=== PATIENT | female | born 2005 | race Caucasian/White ===

== ENCOUNTER 2023-09-16 08:33 | Inpatient (IN) ==
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
[2023-09-16 09:53] LABS: Basophils # (auto) 0.07 K/uL (0.00-0.20); Eosinophils # (auto) 0.47 K/uL (0.00-0.50); Hematocrit (blood only) 38.9 % (37.0-47.0); Hemoglobin 13.8 g/dl (12.0-16.0); Immature Granulocytes # (auto) 0.03 K/uL (0.01-0.20); Immature Granulocytes % (auto) 0.4 %; Lymphocytes # (auto) 1.92 K/uL (1.20-3.40); Lymphocytes % (auto) 28.7 %; Mean Corpuscular Hemoglobin 32.2 pg (25.0-34.0); Mean Corpuscular Hgb Conc 35.5 g/dL (32.0-36.0); Mean Corpuscular Volume 90.7 fL (80.0-100.0); Mean Platelet Volume 10.7 fL (9.4-12.4); Neutrophils % (auto) 53.9 %; Platelet Count 300 K/uL (130-400); RDW Coefficient of Variation 11.8 % (11.5-14.5); RDW Standard Deviation 38.5 fL (36.4-46.3); Red Blood Count 4.29 M/uL (4.20-5.40); White Blood Count 6.69 K/ul (4.8-10.8)
[2023-09-16 10:03] LABS: Albumin Globulin Ratio 1.5 (0.9-2); Albumin Level 4.1 gm/dl (3.4-5.0); BUN Creatinine Ratio 13.6 (10-20); Bilirubin,Total 0.7 mg/dl (0.2-1.0); Calcium 9.6 mg/dl (8.6-10.3); Creatinine Clr Calc Pharmacy 133.3 ml/min; Est GFR (African American) 148.4 ml/min; Est GFR (Non-African American) 128.1 ml/min; Globulin 2.8 gm/dl (2.5-4.0); Potassium 4.7 mmol/L (3.5-5.1); Total Protein 6.9 gm/dl (6.0-8.3)
[2023-09-16 10:13] LABS: Acetaminophen < 3 ug/ml (10-30); Salicylate < 3.0 mg/dl (3.0-30)
[2023-09-16 10:18] LABS: Thyroid Stimulating Hormone 1.987 uIu/ml (0.300-4.500)
[2023-09-16 11:30] LABS: Appearance Urine Clear (Clear); Bilirubin Urine Negative (Negative); Blood Urine Negative (Negative); Color Urine Yellow; Glucose Urine UA Negative (Negative); Ketones Urine Negative (Negative); Leukocyte Esterase Urine Negative (Negative); Nitrite Urine Negative (Negative); Protein Urine Negative (Negative); Specific Gravity Urine 1.013 (1.000-1.030); Urobilinogen Urine Negative (Negative)
[2023-09-16 12:38] LABS: Amphetamines+Metham, Urine Neg (Neg); Barbiturates, Urine Neg (Neg); Benzodiazepine, Urine Neg (Neg); Cocaine, Urine Neg (Neg); MDMA (Ecstacy), Urine Neg (Neg); Marijuana, Urine Neg (Neg); Methadone, Urine Neg (Neg); Opiate, Urine Neg (Neg); Phencyclidine, Urine Neg (Neg)
[2023-09-16 17:21] VITALS: O2SAT 99
[2023-09-16] MEDS ORDERED: ALUMINUM/MAGNESIUM SUSP 30 ML UDC PO PRN (19:04)
[2023-09-16] MEDS ORDERED: MAGNESIUM HYDROXIDE SUSP 30 ML UDC PO PRN (19:04)
[2023-09-16] MEDS ORDERED: SODIUM CHLORIDE 0.65% NA SOLN 45 ML (OCEAN) PRN (19:04)
[2023-09-16] MEDS ORDERED: ACETAMINOPHEN 325 MG TAB PO PRN (19:04)
[2023-09-16] MEDS ORDERED: hydrOXYzine HCl 25 MG TAB PO PRN (19:04)
[2023-09-16] MEDS ORDERED: BISMUTH SUBSALICYLATE LIQD 236 ML PO PRN (19:04)
[2023-09-16] MEDS ORDERED: ARIPiprazole 5 MG TAB PO SCH (19:15)
[2023-09-16] MEDS: FLUoxetine HCL 20 MG CAP PO SCH (21:00)
[2023-09-16] MEDS: HAILEY FE PO SCH (21:03)
[2023-09-16] MEDS: ARIPIprazole 1 MG/ML ORAL SOLN 150 ML BTL PO SCH (21:06)
[2023-09-16] MEDS: LORATADINE 10 MG TAB PO SCH (21:10)
[2023-09-17] MEDS: ARIPIprazole 1 MG/ML ORAL SOLN 150 ML BTL PO SCH (09:23)
[2023-09-17] MEDS: FLUoxetine HCL 20 MG CAP PO SCH (09:23)
[2023-09-17] MEDS: HAILEY FE PO SCH (09:24)
[2023-09-17] MEDS: FEXOFENADINE HCL 180 MG TAB PO SCH (09:24)
--- NOTE | 2023-09-17 09:31 | History & Physical ---
Date of Service September 17, 2023 Impression / Recommendations Impression 17 y/o F with history recurrent major depression and recently increasing suicidal preoccupation who has had limited response to fluoxetine 60 mg. Aripiprazole has recently been added and titrated to 4 mg dose. It seems likely she may meet criteria for cPTSD. She presents as hypermature for her age and gives a clear history of parentification. Likely to underreport symptoms and relying or depending on others. Overall I spent a total of 87 minutes on the floor for this admission including review of chart records, review of test results, direct evaluation of the patient [id number], counseling the patient, reconciling and ordering medication, medication education with the patient, risk assessment, discussion during interdisciplinary treatment rounds, and documentation in the electronic health record. (1) Major depressive disorder, recurrent, severe without psychotic features: Plan The patient was admitted to the [facility] ([facility]) on q15 minute checks (behavioral with suicide precautions) for safety.The patient will participate in group, recreational, and milieu therapies and will be offered additional individual and family sessions as clinically appropriate. * continue fluoxetine 60 mg, consider increase to 80 mg vs change to escitalopram * increase aripiprazole to 5 mg, anticipate likely further titration * In addition to the screening labs ordered in the ED, will order vitamin B12 level, folic acid level, 25-OH vitamin D level, ESR to rule out conditions more pertinent to psychiatric symptoms. Inventory Assets Strengths: supportive relationships, has local supports, voluntary, good insight, intelligent, attending classes Needs: safety and stabilization, medication adjustment, additional coping skills Suicide Risk Level Suicide Risk Level: Moderate (q15 min suicide checks) (denies current thoughts but recently was researching best methods of completing suicide) Risk Factors Assessment Male: No : Yes Do You Have Access To A Gun?: No Health Problems: No Mental Health Diagnoses: Yes Substance Use Disorders: No Previous Attempt: No Previous Psychiatric Hospitalization: Yes Hopelessness: No Protective Factors Assessment : No Responsible for Young Children: No Stable Relationships: Yes Supportive Family: No Good Rapport with Provider: Yes Psychiatric History Identifying Data LAVON DIOR is a 17-year-old F who currently lives in [place] with 4 teammates, has a history of recurrent major depression, and was admitted on 09/16/23 18:12 on a 201 voluntary commitment for suicidal thoughts. Chief Complaint "I got to where I couldn't handle it all right now". History of Present Illness As part of a thorough review of the available medical records, I have read and confirmed the following note by the ED physician: "Patient is a 17-year-old female who presents to the ER for suicidal ideations with a plan to overdose. 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 She also got into a fight with her sister and was having trouble while babysitting. She has a history of depression and anxiety. She has been taking her medications but notes that Saturday night she was researching which meds to take to kill herself. She still has thoughts of wanting to kill her self and consequently notified [employer] who confirms this at bedside. Patient denies all other complaints." the following notes by the ED psychiatric complex case manager: "Met with pt to complete mental health assessment. She self-harms by cutting, with the last time being approximately 2 weeks ago. Pt started cutting when she was 16 as a way of coping with her emotions. Pt has outpatient providers whom she meets with regularly. She gets her medications prescribed via telehealth from her provider back in [place]. She meets with Jayne Lopez at [facility] once a week for counseling. Pt reports past traumas of her father being alcoholic and describing multiple times how he would kill himself, having to drive her mother to the ER after she attempted to kill herself and the pt found her when she was 14 years old, and her mom having breast cancer and anorexia. She has not been eating or sleeping well and feels both are related to how she has been feeling with her mental health. She doesn't have the motivation to get up and make herself something to eat and she hasn't been feeling hungry. Pt report difficulty falling and staying asleep at night, then is overly tired during the day time. She describes her current academic standing as "on a slow decline". She has been missing some classes due to lacking the motivation to get up. 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 She also enjoys reading, crafts, and hanging out with friends. She does feel that she has been participating in these activities less but does not feel she is isolating herself at this time. Pt denies any drug or alcohol use. Pt is willing to sign herself in for treatment." "Sanchez from [facility]'s Mental Health Case Management was present with pt in the ED from arrival. She has since left the ED and asked that we call her with updates when we get placement. Pt agreeable to staff contacting Sanchez ([phone]) and keeping her updated. Will have pt sign KATHRYN." "Met with pt with Dr. Caldera. Pt states that she was having thoughts to kill herself last night and had begun looking at her medications to see which ones would kill her. Pt states these thoughts come and go but recently have gotten worse. She states there were no events or triggers to increase these thoughts, but then goes on to list different things that happened over the break. Her dad spent some time in the hospital for stroke symptoms and the pt reports being the one to care for him as there is nobody else to do it. She also stated her cousin got diagnosed with Leukemia. She also got into a big fight with her sister. Pt has never attempted suicide in the past but has been inpatient once before in [place]. Pt states she did not stay for treatment at this facility as it felt was unsafe in relation to the staff to patient ratio. She stated the facility did not have space for her when she got there and that there were very minimal staff with a large number of patients. Pt denies HI/Hallucinations. She is prescribed Prozac and Abilify by a psychiatrist back home in [place]. Pt reports she is compliant with her medications. She is seeking inpatient treatment at this time. " and the following note by the psychiatric liaison nurse: "Patient presented to ED with SI, with plan to OD. She denies any past SA. She was inpatient in December at [facility] in [place]. She states it was not a g ood experience and signed herself out. She does have a history of SIB by cutting, last episode was 2 weeks ago. 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 She identifies her stressors as family, school, and pressures with fencing. She reports that she and her father are not close. Over break she and her sister got in a fight, and was with her father who was having health concerns. Her parents are states her mother is supportive however "overbearing." She states due to her current mental health state, her grades are declining. She does have outpatient providers, Jayne Lopez for therapy, next appointment 09/18/23 whom she sees weekly, [facility] Pelaez in [place] for psychiatry her Prozac was recently increased to 60mg. She denies any D&A use. Today she began to see [facility] ([phone])." Review of the medical record reveals no previous or outside psychiatric records. Pt. carries diagnosis of Recurrent Major Depression and "cPTSD" has been raised as a possibility. Review of pertinent labs reveals they are noncontributory. A urine toxicology screen was negative for all tested substrates. BAL was <10 mg/dL. screen was negative. Pt presents as pleasant, cooperative, but somewhat detached. Describes a very challenging family with an alcoholic and intermittently violent father who has threatened suicide often and a mother who has attempted suicide multiple times including once when pt found her on the floor post-overdose. Despite categorizing her father as "a piece of shit", she recently spent long hours in the hospital with him "because nobody else would". Depression symptoms have worsened over the past several weeks with a specific stressor being an argument she had with a sister over Thanksgiving. She has become somewhat preoccupied with ways she might kill herself and reading about this online. She elected to tell a sports trainer about this and came to the ED. Has been on fluoxetine for over a year and fairly recently started aripiprazole at 2 mg with more-recent increase to 4 mg. She attributes no side effect to either, but reports scant benefit either. Past Psychiatric History Current Psychiatric Diagnosis: MDD Outpatient Services: Jayne Lopez psychotherapy, Kenya Pelaez (MEDICAL ARTIST) in [place] for medicaiton management Previous Psych Admissions: none Do You Have Access To A Gun?: No History of Previous Suicide Attempt: No Allergies Allergy/AdvReac Type Severity Reaction Status Date / Time amoxicillin Allergy Anaphylaxis Verified 09/16/23 11:53 Penicillins Allergy Anaphylaxis Verified 09/16/23 11:53 Home Medications Medication Instructions Recorded Confirmed Type Claritin 10 mg PO HS 09/16/23 09/16/23 History aripiprazole 2 mg tablet (Abilify) 4 mg PO DAILY 09/16/23 09/16/23 History fexofenadine 180 mg PO DAILY 09/16/23 09/16/23 History fluoxetine 60 mg tablet 60 mg PO DAILY 09/16/23 09/16/23 History Family History Family History of: Depression and Suicide Attempts Alcohol History Hx of Alcohol Use Over the Past 12 Months: No AUDIT Total Score: 0 Smoking Use Have You Smoked or Used Tobacco Products in the Last 30 Days: No Smoking Status: Never smoker Substance History Hx of Prescription Med Misuse Over the Past 12 Months: No Hx of Over the Counter Med Misuse Over the Past 12 Months: No Hx of Inhalent Misuse Over the Past 12 Months: No Hx of Organic Substance Use Over the Past 12 Months: No Hx of Illegal Substances/Street Drug Use Over Past 12 Months: No Problems as a Result of Past Substance Use: None Identified Personal History Beliefs That Will Affect Care: None Patient History Medical History (Updated 09/17/23 @ 13:20 by Austyn Saenz MD) Major depressive disorder, recurrent, severe without psychotic features Social History Smoking Status: Never smoker Preferred Language: Divehi Communication Ability: Effective Communications Executive Required: No Beliefs That Will Affect Care: None Feels Safe at Home: Yes Gender Identity: Female Assistive Devices: Glasses Review of Systems Psychiatric: + depression, + hopelessness, + anhedoni a, + abnormal sleep pattern, + change in appetite, + suicidal ideation, + anxiety and + difficulty concentrating; no paranoia, no hallucinations and no substance abuse Physical Exam Psychiatric: Orientation: alert, oriented to person, oriented to place, oriented to time and cooperative Apperance: appropriately dressed, appropriately groomed and appeared stated age Eye Contact: good eye contact Motor Behavior: no abnormal motor movements Speech: normal rate/rhythm/volume of speech Affect: + constricted affect Mood: + depressed mood and + anxious mood Thought Process: linear/logical thought process Thought Content: reality based without delusions Suicidal Thoughts: denies suicidal plan and denies suicidal intent; + reports suicidal thoughts Homicidal Thoughts: denies homicidal thoughts Hallucinations: no auditory hallucinations and no visual hallucinations Cognition: recent memory grossly intact, remote memory grossly intact, attention grossly intact and language grossly intact Estimated Intelligence: + above average estimated intelligence Insight: + fair insight Judgment: + fair judgement Vital Signs (Past 24 Hours): Last Vital Signs Temp 36.6 C 11/28/23 06:40 Pulse 92 H 09/17/23 06:41 Resp 16 09/17/23 06:40 BP 101/71 09/17/23 06:41 Pulse Ox 99 09/16/23 17:20 O2 Del Method Room Air 09/16/23 18:30 Exam Statement: A physical exam was performed in the ED for the purposes of medical clearance. I accept that physical as correct and adequate for the purposes of the inpatient physical exam. Results & Data ([facility]) Laboratory Results Laboratory Results - last 24 hr 09/16/23 09/16/23 09/16/23 09:26 10:03 11:15 WBC 6.69 RBC 4.29 Hgb 13.8 Hct 38.9 MCV 90.7 MCH 32.2 MCHC 35.5 RDW Std Deviation 38.5 RDW Coeff of Rachel 11.8 Plt Count 300 MPV 10.7 Immature Gran % (Auto) 0.4 Neut % (Auto) 53.9 Lymph % (Auto) 28.7 [place] % (Auto) 9.0 Eos % (Auto) 7.0 Baso % (Auto) 1.0 Neut # (Auto) 3.60 Lymph # (Auto) 1.92 [place] # (Auto) 0.60 H Eos # (Auto) 0.47 Baso # (Auto) 0.07 Immature Gran # (Auto) 0.03 Sodium 139 Potassium 4.7 Chloride 107 Carbon Dioxide 27 Anion Gap 5 BUN 9 Creatinine 0.66 Est Cr Clr Drug Dosing 133.3 Est GFR ( Amer) 148.4 Est GFR (Non-Af Amer) 128.1 BUN/Creatinine Ratio 13.6 Glucose 89 Calcium 9.6 Total Bilirubin 0.7 AST 19 ALT 14 Alkaline Phosphatase 70 Total Protein 6.9 Albumin 4.1 Globulin 2.8 Albumin/Globulin Ratio 1.5 TSH 1.987 Urine Color Yellow Urine Appearance Clear Urine pH 6.0 Ur Specific [place] 1.013 Urine Protein Negative Urine Glucose (UA) Negative Urine Ketones Negative Urine Blood Negative Urine Nitrite Negative Urine Bilirubin Negative Urine Urobilinogen Negative Ur Leukocyte Esterase Negative POC Ur Test Salicylates < 3.0 L Urine Opiates Screen Neg Ur Methadone, Qual Neg Acetaminophen < 3 L Urine Barbiturates Neg Ur Phencyclidine (PCP) Neg U Amphetamin/Meth Scrn Neg MDMA (Ecstasy) Screen Neg U Benzodiazepines Scrn Neg Ur Cocaine Metabolite Neg U Marijuana (THC) Screen Neg Ethyl Alcohol mg/dL < 10.0 SARS-CoV-2, RNA, NAAT NEGATIVE 09/16/23 17:44 WBC RBC Hgb Hct MCV MCH MCHC RDW Std Deviation RDW Coeff of Rachel Plt Count MPV Immature Gran % (Auto) Neut % (Auto) Lymph % (Auto) [place] % (Auto) Eos % (Auto) Baso % (Auto) Neut # (Auto) Lymph # (Auto) [place] # (Auto) Eos # (Auto) Baso # (Auto) Immature Gran # (Auto) Sodium Potassium Chloride Carbon Dioxide Anion Gap BUN Creatinine Est Cr Clr Drug Dosing Est GFR ( Amer) Est GFR (Non-Af Amer) BUN/Creatinine Ratio Glucose Calcium Total Bilirubin AST ALT Alkaline Phosphatase Total Protein Albumin Globulin Albumin/Globulin Ratio TSH Urine Color Urine Appearance Urine pH Ur Specific [place] Urine Protein Urine Glucose (UA) Urine Ketones Urine Blood Urine Nitrite Urine Bilirubin Urine Urobilinogen Ur Leukocyte Esterase POC Ur Test NEG Salicylates Urine Opiates Screen Ur Methadone, Qual Acetaminophen Urine Barbiturates Ur Phencyclidine (PCP) U Amphetamin/Meth Scrn MDMA (Ecstasy) Screen U Benzodiazepines Scrn Ur Cocaine Metabolite U Marijuana (THC) Screen Ethyl Alcohol mg/dL SARS-CoV-2, RNA, NAAT Current Inpatient Medications Current Inpatient Medications: Current Inpatient Medications Acetaminophen (Acetaminophen 325 Mg Tab) 650 mg PO Q4H PRN PRN Reason: Headache or Minor Fever Stop: 10/16/23 19:03 Al Hydrox/Mg Hydrox/Simethicone (Aluminum/Magnesium Susp 30 Ml Udc) 30 ml PO Q4 H PRN PRN Reason: GI Upset Stop: 10/16/23 19:03 Aripiprazole (Aripiprazole 1 Mg/Ml Oral Soln 150 Ml Btl) 4 mg PO QAM WIL Stop: 10/16/23 20:59 Last Admin: 09/17/23 09:23 Dose: 4 mg Bismuth Subsalicylate (Bismuth Subsalicylate Liqd 236 Ml) 15 ml PO PRN PRN PRN Reason: Loose Stool Stop: 10/16/23 19:03 Fexofenadine HCl (Fexofenadine Hcl 180 Mg Tab) 180 mg PO QAM WIL Stop: 10/17/23 08:59 Last Admin: 09/17/23 09:24 Dose: 180 mg Fluoxetine HCl (Fluoxetine Hcl 20 Mg Cap) 60 mg PO QAM WIL Stop: 10/16/23 19:14 Last Admin: 09/17/23 09:23 Dose: 60 mg Hydroxyzine HCl (Hydroxyzine Hcl 25 Mg Tab) 50 mg PO HSZ PRN PRN Reason: Insomnia Stop: 10/16/23 19:03 Hydroxyzine HCl (Hydroxyzine Hcl 25 Mg Tab) 25 mg PO Q4H PRN PRN Reason: Anxiety Stop: 10/16/23 19:03 Loratadine (Loratadine 10 Mg Tab) 10 mg PO HS WIL Stop: 10/16/23 21:59 Last Admin: 09/16/23 21:10 Dose: 10 mg Magnesium Hydroxide (Magnesium Hydroxide Susp 30 Ml Udc) 30 ml PO DAILY PRN PRN Reason: Constipation Stop: 10/16/23 19:03 Shanell 24 Fe: Non- Formulary Patient's Own Med 1 each PO DAILY WIL Stop: 10/16/23 19:29 Last Admin: 09/17/23 09:24 Dose: 1 each Sodium Chloride (Sodium Chloride 0.65% Na Soln 45 Ml ([place])) 1 - 2 sprays NA PRN PRN PRN Reason: Nasal Dryness/Congestion Stop: 10/16/23 19:03
[2023-09-17 15:31] LABS: Folate (Folic Acid),Ser orPlas 11.55 ng/ml (>5.38)
[2023-09-17] MEDS: LORATADINE 10 MG TAB PO SCH (21:07)
[2023-09-18] MEDS ORDERED: ARIPiprazole 5 MG TAB PO SCH (09:00)
[2023-09-18] MEDS: FEXOFENADINE HCL 180 MG TAB PO SCH (09:22)
[2023-09-18] MEDS: HAILEY FE PO SCH (09:23)
[2023-09-18] MEDS: FLUoxetine HCL 20 MG CAP PO SCH (09:23)
--- NOTE | 2023-09-18 17:15 | Psychiatric Progress Note ---
Date of Service September 18, 2023 Impression / Recommendations Impression 17 y/o F with history recurrent major depression and recently increasing suicidal preoccupation who has had limited response to fluoxetine 60 mg. Aripiprazole has recently been added and titrated to 4 mg dose. It seems likely she may meet criteria for cPTSD. She presents as hypermature for her age and gives a clear history of parentification. Likely to underreport symptoms and relying or depending on others. 09/18/2023: Pt has been pleasant and appropriate, participating in groups, but has been concerned about an solicitous of peers. This has not been inappropriate apart per se but underscores her difficulty in identifying and attending to her own needs. Discussed at length her medication history. She had a trial of escitalopram at 15 y/o that appeared to precipitate suicidal thoughts, then was switched to fluoxetine. She reports significant improvement in panic attacks and clear but partial benefit for depression at the starting dose, and very good control of panic and further but still limited benefit for depression as dose was titrated. It was increased from 40 mg to 60 mg about 2 weeks ago. Aripiprazole was started at 2 mg and increased recently to 4 mg. Pt does not associate either medication with any adverse effects. It seems clear that pt meets criteria for major depression. She describes very clear panic attacks prior to fluoxetine which she has not experienced for "a long time". She endorses several symptoms of PTSD but may not meet full diagnostic criteria. For any of these conditions, fluoxetine would be an appropriate medication. While the response in terms of depression has been limited, it appears to be controlling panic well and may be suppressing PTSD symptoms. In my opinion, the dose range most likely to be effective in adults for PTSD is 40-80 mg/day so the recent increase to 60 mg seems very appropriate and further increase at this time seems premature. Fluoxetine carries a higher risk of tachyphylaxis than other antidepressants and higher doses are associated with higher risk. As a result I avoid stopping fluoxetine unless it is clearly ineffective or not tolerated and while cautious about unnecessarily high doses believe that it's very important to ensure a reasonable dose has been achieved before switching to alternate medications. Therefore, in my opinion, continuing the 60 mg trial for several more weeks is appropriate and I would strongly consider further titration to 80 mg in the absence of side effects. Reviewed with pt data suggesting potentially significant augmentation of response to fluoxetine by addition of folic acid, which she would like to try. Discussed rationale for use of mood stabilizer for depression. She's tolerated increase from 4 mg to 5 mg with no evident adverse effect and would like to increase further. Pt reports strong propensity for mood worsening in the fall. While she certainly does not have classic seasonal depression, she might nonetheless benefit from approaches shown to be effective for seasonal depression: (in order of stength of supportive data and effect size) aerobic exercise (which she already does), bright light phototherapy (discussed in some detail), CBT, and bupropion. Additonal diagnostic labs were all within the reference ranges. (1) Major depressive disorder, recurrent, severe without psychotic features: Plan 09/18/2023: * continue fluoxetine 60 mg, consider increase to 80 mg (most likely post- discharge) - prior to admission medication * increase aripiprazole to 7.5 mg - increased 09/17/2023 from prior to admission dose of 4 mg * add folic acid 1 mg daily as augmentation strategy 09/17/2023: The patient was admitted to the [facility] ([facility] mental health unit) on q15 minute checks (behavioral with suicide precautions) for safety.The patient will participate in group, recreational, and milieu therapies and will be offered additional individual and family sessions as clinically appropriate. * continue fluoxetine 60 mg, consider increase to 80 mg vs change to escitalopram * increase aripiprazole to 5 mg, anticipate likely further titration * In addition to the screening labs ordered in the ED, will order vitamin B12 level, folic acid level, 25-OH vitamin D level, ESR to rule out conditions more pertinent to psychiatric symptoms. Inventory Assets Strengths: supportive relationships, has local supports, voluntary, good insight, intelligent, attending classes Needs: safety and stabilization, medication adjustment, additional coping skills Suicide Risk Level Suicide Risk Level: Moderate (q15 min suicide checks) (denies current thoughts but recently was researching best methods of completing suicide) Risk Factors Assessment Male: No : Yes Do You Have Access To A Gun?: No Health Problems: No Mental Health Diagnoses: Yes Substance Use Disorders: No Previous Attempt: No Previous Psychiatric Hospitalization: Yes Hopelessness: No Protective Factors Assessment : No Responsible for Young Children: No Stable Relationships: Yes Supportive Family: No Good Rapport with Provider: Yes Interval History Identifying Information LAVON DIOR is a 17-year-old F who currently lives in [place] with 4 teammates, has a history of recurrent major depression, and was admitted on 09/16/23 18:12 on a 201 voluntary commitment for suicidal thoughts. Chief Complaint "Not really any different". Review of Systems Sleep Information Total Hours of Sleep: 5.25 Meal Information Percent Meal Consumed - Breakfast: 100 Percent Meal Consumed - Lunch: 80 Percent Meal Consumed - Dinner: 100 Subjective Subjective The patient was seen and assessed and interval progress reviewed in a multidisciplinary team meeting with the treatment team. For details, see the "Impression" section. Overall I spent a total of 72 minutes for this inpatient follow-up including review of chart records, review of test results, direct evaluation of the patient [id number], counseling the patient, reconciling and ordering medication, medication education with the patient, risk assessment, discussion during interdisciplinary treatment rounds, and documentation in the electronic health record. Physical Exam Psychiatric Orientation: alert, oriented to person, oriented to place, oriented to time and cooperative Apperance: appropriately dressed, appropriately groomed and appeared stated age Eye Contact: good eye contact Motor Behavior: no abnormal motor movements Speech: normal rate/rhythm/volume of speech Affect: + constricted affect Mood: + depressed mood and + anxious mood Thought Process: linear/logical thought process Thought Content: reality based without delusions Suicidal Thoughts: denies suicidal plan and denies suicidal intent; + reports suicidal thoughts Homicidal Thoughts: denies homicidal thoughts Hallucinations: no auditory hallucinations and no visual hallucinations Cognition: recent memory grossly intact, remote memory grossly intact, attention grossly intact and language grossly intact Estimated Intelligence: + above average estimated intelligence Insight: + fair insight Judgment: + fair judgement Vital Signs (Past 24 Hours) Last Vital Signs Temp 36.9 C 09/18/23 06:00 Pulse 101 H 09/18/23 06:31 Resp 16 09/18/23 06:00 BP 105/72 09/18/23 06:31 Pulse Ox 99 09/16/23 17:20 O2 Del Method Room Air 09/16/23 18:30 Results & Data (U) Current Inpatient Medications Current Inpatient Medications: Current Inpatient Medications Acetaminophen (Acetaminophen 325 Mg Tab) 650 mg PO Q4H PRN PRN Reason: Headache or Minor Fever Stop: 10/16/23 19:03 Last Admin: 09/17/23 16:07 Dose: 650 mg Al Hydrox/Mg Hydrox/Simethicone (Aluminum/Magnesium Susp 30 Ml Udc) 30 ml PO Q4H PRN PRN Reason: GI Upset Stop: 10/16/23 19:03 Bismuth Subsalicylate (Bismuth Subsalicylate Liqd 236 Ml) 15 ml PO PRN PRN PRN Reason: Loose Stool Stop: 10/16/23 19:03 Fexofenadine HCl (Fexofenadine Hcl 180 Mg Tab) 180 mg PO QAM WIL Stop: 10/17/23 08:59 Last Admin: 09/18/23 09:22 Dose: 180 mg Fluoxetine HCl (Fluoxetine Hcl 20 Mg Cap) 60 mg PO QAM WIL Stop: 10/16/23 19:14 Last Admin: 09/18/23 09:23 Dose: 60 mg Folic Acid (Folic Acid 1 Mg Tab) 1 mg PO QAM WIL Stop: 10/19/23 08:59 Hydroxyzine HCl (Hydroxyzine Hcl 25 Mg Tab) 50 mg PO HSZ PRN PRN Reason: Insomnia Stop: 10/16/23 19:03 Hydroxyzine HCl (Hydroxyzine Hcl 25 Mg Tab) 25 mg PO Q4H PRN PRN Reason: Anxiety Stop: 10/16/23 19:03 Loratadine (Loratadine 10 Mg Tab) 10 mg PO HS WIL Stop: 10/16/23 21:59 Last Admin: 09/17/23 21:07 Dose: 10 mg Magnesium Hydroxide (Magnesium Hydroxide Susp 30 Ml Udc) 30 ml PO DAILY PRN PRN Reason: Constipation Stop: 10/16/23 19:03 Shanell 24 Fe: Non- Formulary Patient's Own Med 1 each PO DAILY WIL Stop: 10/16/23 19:29 Last Admin: 09/18/23 09:23 Dose: 1 each Sodium Chloride (Sodium Chloride 0.65% Na Soln 45 Ml ([place])) 1 - 2 sprays NA PRN PRN PRN Reason: Nasal Dryness/Congestion Stop: 10/16/23 19:03 Mental Health & Subst Abuse Tx Psychiatrist Name of Psychiatrist: Kenya Pelaez Date Of Appointment With Psychiatric Provider: 10/07/2023 Time of Appointment with Psychiatrist: 12pm Psychiatric Appointment Comment: telehealth Therapist Name of Therapist: [facility]-Jayne Lopez Therapist's Date of Therapist Appointment: 09/23/2023 Time of Therapist Appointment: 11am Therapy Appointment Comment: [address], [address], [place], [place] Hand Gluer And Slicer Name of Hand Gluer And Slicer: CASTILLO Arboleda Phone Number for Hand Gluer And Slicer: [phone] Post Discharge Appointments Primary Care Physician Name Of Family Doctor/PCP: CASTILLO Ramos Time of Appointment with PCP: please follow up as needed
[2023-09-18] MEDS: hydrOXYzine HCl 25 MG TAB PO PRN (21:16)
[2023-09-18] MEDS: LORATADINE 10 MG TAB PO SCH (21:16)
--- NOTE | 2023-09-19 09:03 | Psychiatric Progress Note ---
Date of Service September 19, 2023 Impression / Recommendations Impression 17 y/o F with history recurrent major depression and recently increasing suicidal preoccupation who has had limited response to fluoxetine 60 mg. Aripiprazole has recently been added and titrated to 4 mg dose. It seems likely she may meet criteria for cPTSD. She presents as hypermature for her age and gives a clear history of parentification. Likely to underreport symptoms and relying or depending on others. 09/19/2023: Continues gradually to improve. Participates well. Has tolerated increase of aripiprazole to 7.5 mg thus far with no evidence of adverse effects. Voices feeling obligated to go home because her mother needs her. She recognizes to a degree how problematic this might be for her and how manipulative her mother can be, but has a strong sense of duty and obligation. 09/18/2023: Pt has been pleasant and appropriate, participating in groups, but has been concerned about an solicitous of peers. This has not been inappropriate apart per se but underscores her difficulty in identifying and attending to her own needs. Discussed at length her medication history. She had a trial of escitalopram at 15 y/o that appeared to precipitate suicidal thoughts, then was switched to fluoxetine. She reports significant improvement in panic attacks and clear but partial benefit for depression at the starting dose, and very good control of panic and further but still limited benefit for depression as dose was titrated. It was increased from 40 mg to 60 mg about 2 weeks ago. Aripiprazole was started at 2 mg and increased recently to 4 mg. Pt does not associate either medication with any adverse effects. It seems clear that pt meets criteria for major depression. She describes very clear panic attacks prior to fluoxetine which she has not experienced for "a long time". She endorses several symptoms of PTSD but may not meet full diagnostic criteria. For any of these conditions, fluoxetine would be an appropriate medication. While the response in terms of depression has been limited, it appears to be controlling panic well and may be suppressing PTSD symptoms. In my opinion, the dose range most likely to be effective in adults for PTSD is 40-80 mg/day so the recent increase to 60 mg seems very appropriate and further increase at this time seems premature. Fluoxetine carries a higher risk of tachyphylaxis than other antidepressants and higher doses are associated with higher risk. As a result I avoid stopping fluoxetine unless it is clearly ineffective or not tolerated and while cautious about unnecessarily high doses believe that it's very important to ensure a reasonable dose has been achieved before switching to alternate medications. Therefore, in my opinion, continuing the 60 mg trial for several more weeks is appropriate and I would strongly c onsider further titration to 80 mg in the absence of side effects. Reviewed with pt data suggesting potentially significant augmentation of response to fluoxetine by addition of folic acid, which she would like to try. Discussed rationale for use of mood stabilizer for depression. She's tolerated increase from 4 mg to 5 mg with no evident adverse effect and would like to increase further. Pt reports strong propensity for mood worsening in the fall. While she certainly does not have classic seasonal depression, she might nonetheless benefit from approaches shown to be effective for seasonal depression: (in order of stength of supportive data and effect size) aerobic exercise (which she already does), bright light phototherapy (discussed in some detail), CBT, and bupropion. Additonal diagnostic labs were all within the reference ranges. (1) Major depressive disorder, recurrent, severe without psychotic features: Plan 09/19/2023 * continue fluoxetine 60 mg, consider increase to 80 mg (most likely post- discharge) - prior to admission medication * continue aripiprazole 7.5 mg - increased 09/18/2023, increased 09/17/2023 to 5 mg from prior to admission dose of 4 mg * continue folic acid 1 mg daily as augmentation strategy 09/18/2023: * continue fluoxetine 60 mg, consider increase to 80 mg (most likely post- discharge) - prior to admission medication * increase aripiprazole to 7.5 mg - increased 09/17/2023 from prior to admission dose of 4 mg * add folic acid 1 mg daily as augmentation strategy 09/17/2023: The patient was admitted to the [facility] ([facility] mental health unit) on q15 minute checks (behavioral with suicide precautions) for safety.The patient will participate in group, recreational, and milieu therapies and will be offered additional individual and family sessions as clinically appropriate. * continue fluoxetine 60 mg, consider increase to 80 mg vs change to escitalopram * increase aripiprazole to 5 mg, anticipate likely further titration * In addition to the screening labs ordered in the ED, will order vitamin B12 level, folic acid level, 25-OH vitamin D level, ESR to rule out conditions more pertinent to psychiatric symptoms. Inventory Assets Strengths: supportive relationships, has local supports, voluntary, good insight, intelligent, attending classes Needs: safety and stabilization, medication adjustment, additional coping skills Suicide Risk Level Suicide Risk Level: Moderate (q15 min suicide checks) (denies current thoughts but recently was researching best methods of completing suicide) Risk Factors Assessment Male: No : Yes Do You Have Access To A Gun?: No Health Problems: No Mental Health Diagnoses: Yes Substance Use Disorders: No Previous Attempt: No Previous Psychiatric Hospitalization: Yes Hopelessness: No Protective Factors Assessment : No Responsible for Young Children: No Stable Relationships: Yes Supportive Family: No Good Rapport with Provider: Yes Interval History Identifying Information LAVON DIOR is a 17-year-old F who currently lives in [place] with 4 teammates, has a history of recurrent major depression, and was admitted on 09/16/23 18:12 on a 201 voluntary commitment for suicidal thoughts. Chief Complaint "Better than yesterday". Review of Systems Sleep Information Total Hours of Sleep: 8.25 Meal Information Percent Meal Consumed - Breakfast: 100 Percent Meal Consumed - Lunch: 80 Percent Meal Consumed - Dinner: 90 Subjective Subjective The patient was seen and assessed and interval progress reviewed in a multidisciplinary team meeting with [the treatment team][psychiatric liaison ][nursing and social work]. For details, see the "Impression" section. Overall I spent a total of 36 minutes for this inpatient follow-up including review of chart records, direct evaluation of the patient [id number], counseling the patient, reconciling and ordering medication, medication education with the patient, risk assessment, discussion during interdisciplinary treatment rounds, and documentation in the electronic health record. Physical Exam Psychiatric Orientation: alert, oriented to person, oriented to place, oriented to time and cooperative Apperance: appropriately dressed, appropriately groomed and appeared stated age Eye Contact: good eye contact Motor Behavior: no abnormal motor movements Speech: normal rate/rhythm/volume of speech Affect: + constricted affect Mood: + depressed mood and + anxious mood Thought Process: linear/logical thought process Thought Content: reality based without delusions Suicidal Thoughts: denies suicidal plan and denies suicidal intent; + reports suicidal thoughts Homicidal Thoughts: denies homicidal thoughts Hallucinations: no auditory hallucinations and no visual hallucinations Cognition: recent memory grossly intact, remote memory grossly intact, attention grossly intact and language grossly intact Estimated Intelligence: + above average estimated intelligence Insight: + fair insight Judgment: + fair judgement Vital Signs (Past 24 Hours) Last Vital Signs Temp 36.9 C 09/19/23 06:00 Pulse 99 H 09/19/23 06:30 Resp 18 09/19/23 06:00 BP 107/73 09/19/23 06:30 Pulse Ox 99 09/16/23 17:20 O2 Del Method Room Air 09/16/23 18:30 Results & Data ([facility]) Current Inpatient Medications Current Inpatient Medications: Current Inpatient Medications Acetaminophen (Acetaminophen 325 Mg Tab) 650 mg PO Q4H PRN PRN Reason: Headache or Minor Fever Stop: 10/16/23 19:03 Last Admin: 09/17/23 16:07 Dose: 650 mg Al Hydrox/Mg Hydrox/Simethicone (Aluminum/Magnesium Susp 30 Ml Udc) 30 ml PO Q4 H PRN PRN Reason: GI Upset Stop: 10/16/23 19:03 Aripiprazole (Aripiprazole 5 Mg Tab) [facility] Stop: 10/19/23 08:59 Bismuth Subsalicylate (Bismuth Subsalicylate Liqd 236 Ml) 15 ml PO PRN PRN PRN Reason: Loose Stool Stop: 10/16/23 19:03 Fexofenadine HCl (Fexofenadine Hcl 180 Mg Tab) [facility] Stop: 10/17/23 08:59 Last Admin: 09/18/23 09:22 Dose: 180 mg Fluoxetine HCl (Fluoxetine Hcl 20 Mg Cap) [facility] Stop: 10/16/23 19:14 Last Admin: 09/18/23 09:23 Dose: 60 mg Folic Acid (Folic Acid 1 Mg Tab) 1 mg PO QAM [facility] Stop: 10/19/23 08:59 Hydroxyzine HCl (Hydroxyzine Hcl 25 Mg Tab) 50 mg PO HSZ PRN PRN Reason: Insomnia Stop: 10/16/23 19:03 Last Admin: 09/18/23 21:16 Dose: 50 mg Hydroxyzine HCl (Hydroxyzine Hcl 25 Mg Tab) 25 mg PO Q4H PRN PRN Reason: Anxiety Stop: 10/16/23 19:03 Loratadine (Loratadine 10 Mg Tab) 10 mg PO HS WIL Stop: 10/16/23 21:59 Last Admin: 09/18/23 21:16 Dose: 10 mg Magnesium Hydroxide (Magnesium Hydroxide Susp 30 Ml Udc) 30 ml PO DAILY PRN PRN Reason: Constipation Stop: 10/16/23 19:03 Shanell 24 Fe: Non- Formulary Patient's Own Med 1 each PO DAILY WIL Stop: 10/16/23 19:29 Last Admin: 09/18/23 09:23 Dose: 1 each Sodium Chloride (Sodium Chloride 0.65% Na Soln 45 Ml ([place])) 1 - 2 sprays NA PRN PRN PRN Reason: Nasal Dryness/Congestion Stop: 10/16/23 19:03 Mental Health & Subst Abuse Tx Psychiatrist Name of Psychiatrist: Kenya Pelaez Date Of Appointment With Psychiatric Provider: 10/07/2023 Time of Appointment with Psychiatrist: 12pm Psychiatric Appointment Comment: telehealth Therapist Name of Therapist: [facility]-Jayne Lopez Therapist's Date of Therapist Appointment: 09/23/2023 Time of Therapist Appointment: 11am Therapy Appointment Comment: [address], [address], [place], [place] Food Adviser Name of Food Adviser: CASTILLO Arboleda Phone Number for Food Adviser: [phone] Post Discharge Appointments Primary Care Physician Name Of Family Doctor/PCP: CASTILLO Ramos Time of Appointment with PCP: please follow up as needed
[2023-09-19] MEDS: ARIPiprazole 5 MG TAB PO SCH (09:23)
[2023-09-19] MEDS: FEXOFENADINE HCL 180 MG TAB PO SCH (09:24)
[2023-09-19] MEDS: FLUoxetine HCL 20 MG CAP PO SCH (09:24)
[2023-09-19] MEDS: FOLIC ACID 1 MG TAB PO SCH (09:25)
[2023-09-19] MEDS: HAILEY FE PO SCH (09:25)
[2023-09-19] MEDS: LORATADINE 10 MG TAB PO SCH (20:28)
[2023-09-19] MEDS: hydrOXYzine HCl 25 MG TAB PO PRN (20:28)
[2023-09-20 06:37] VITALS: RESP 16
[2023-09-20] MEDS: ARIPiprazole 5 MG TAB PO SCH (09:09)
[2023-09-20] MEDS: FLUoxetine HCL 20 MG CAP PO SCH (09:10)
[2023-09-20] MEDS: HAILEY FE PO SCH (09:10)
[2023-09-20] MEDS: FEXOFENADINE HCL 180 MG TAB PO SCH (09:10)
[2023-09-20] MEDS: FOLIC ACID 1 MG TAB PO SCH (09:10)
--- NOTE | 2023-09-20 16:55 | Psychiatric Progress Note ---
Date of Service September 20, 2023 Impression / Recommendations Impression 17 y/o F with history recurrent major depression and recently increasing suicidal preoccupation who has had limited response to fluoxetine 60 mg. Aripiprazole has recently been added and titrated to 4 mg dose. It seems likely she may meet criteria for cPTSD. She presents as hypermature for her age and gives a clear history of parentification. Likely to underreport symptoms and relying or depending on others. 09/20/2023: Reports continuing improvement with no evidence of medication side effects. Tells me she needs to be discharged tomorrow because her mother needs pt to take care of her. Reviewed treatment plan in advance of anticipated discharge. 09/19/2023: Continues gradually to improve. Participates well. Has tolerated increase of aripiprazole to 7.5 mg thus far with no evidence of adverse effects. Voices feeling obligated to go home because her mother needs her. She recognizes to a degree how problematic this might be for her and how manipulative her mother can be, but has a strong sense of duty and obligation. 09/18/2023: Pt has been pleasant and appropriate, participating in groups, but has been concerned about an solicitous of peers. This has not been inappropriate apart per se but underscores her difficulty in identifying and attending to her own needs. Discussed at length her medication history. She had a trial of escitalopram at 15 y/o that appeared to precipitate suicidal thoughts, then was switched to fluoxetine. She reports significant improvement in panic attacks and clear but partial benefit for depression at the starting dose, and very good control of panic and further but still limited benefit for depression as dose was titrated. It was increased from 40 mg to 60 mg about 2 weeks ago. Aripiprazole was started at 2 mg and increased recently to 4 mg. Pt does not associate either medication with any adverse effects. It seems clear that pt meets criteria for major depression. She describes very clear panic attacks prior to fluoxetine which she has not experienced for "a long time". She endorses several symptoms of PTSD but may not meet full diagnostic criteria. For any of these conditions, fluoxetine would be an appropriate medication. While the response in terms of depression has been limited, it appears to be controlling panic well and may be suppressing PTSD symptoms. In my opinion, the dose range most likely to be effective in adults for PTSD is 40-80 mg/day so the recent increase to 60 mg seems very appropriate and further increase at this time seems premature. Fluoxetine carries a higher risk of tachyphylaxis than other antidepressants and higher doses are associated with higher risk. As a result I avoid stopping fluoxetine unless it is clearly ineffective or not tolerated and while cautious about unnecessarily high doses believe that it's very important to ensure a reasonable dose has been achieved before switching to alternate medications. Therefore, in my opinion, continuing the 60 mg trial for several more weeks is appropriate and I would strongly consider further titration to 80 mg in the absence of side effects. Reviewed with pt data suggesting potentially significant augmentation of response to fluoxetine by addition of folic acid, which she would like to try. Discussed rationale for use of mood stabilizer for depression. She's tolerated increase from 4 mg to 5 mg with no evident adverse effect and would like to increase further. Pt reports strong propensity for mood worsening in the fall. While she certainly does not have classic seasonal depression, she might nonetheless benefit from approaches shown to be effective for seasonal depression: (in order of stength of supportive data and effect size) aerobic exercise (which she already does), bright light phototherapy (discussed in some detail), CBT, and bupropion. Additonal diagnostic labs were all within the reference ranges. (1) Major depressive disorder, recurrent, severe without psychotic features: Plan 09/20/2023 * continue fluoxetine 60 mg - prior to admission medication * continue aripiprazole 7.5 mg - increased 09/18/2023, increased 09/17/2023 to 5 mg from prior to admission dose of 4 mg * continue folic acid 1 mg daily as augmentation strategy * anticipate discharge tomorrow 09/19/2023 * continue fluoxetine 60 mg, consider increase to 80 mg (most likely post- discharge) - prior to admission medication * continue aripiprazole 7.5 mg - increased 09/18/2023, increased 09/17/2023 to 5 mg from prior to admission dose of 4 mg * continue folic acid 1 mg daily as augmentation strategy 09/18/2023: * continue fluoxetine 60 mg, consider increase to 80 mg (most likely post- discharge) - prior to admission medication * increase aripiprazole to 7.5 mg - increased 09/17/2023 from prior to admission dose of 4 mg * add folic acid 1 mg daily as augmentation strategy 09/17/2023: The patient was admitted to the [facility] (locked inpatient mental health unit) on q15 minute checks (behavioral with suicide precautions) for safety.The patient will participate in group, recreational, and milieu therapies and will be offered additional individual and family sessions as clinically appropriate. * continue fluoxetine 60 mg, consider increase to 80 mg vs change to escitalopram * increase aripiprazole to 5 mg, anticipate likely further titration * In addition to the screening labs ordered in the ED, will order vitamin B12 level, folic acid level, 25-OH vitamin D level, ESR to rule out conditions more pertinent to psychiatric symptoms. Inventory Assets Strengths: supportive relationships, has local supports, voluntary, good insight, intelligent, attending classes Needs: safety and stabilization, medication adjustment, additional coping skills Suicide Risk Level Suicide Risk Level: Moderate (q15 min suicide checks) (denies current thoughts but recently was researching best methods of completing suicide) Risk Factors Assessment Male: No : Yes Do You Have Access To A Gun?: No Health Problems: No Mental Health Diagnoses: Yes Substance Use Disorders: No Previous Attempt: No Previous Psychiatric Hospitalization: Yes Hopelessness: No Protective Factors Assessment : No Responsible for Young Children: No Stable Relationships: Yes Supportive Family: No Good Rapport with Provider: Yes Interval History Identifying Information LAVON DIOR is a 17-year-old F who currently lives in [place] with 4 teammates, has a history of recurrent major depression, and was admitted on 09/16/23 18:12 on a 201 voluntary commitment for suicidal thoughts. Chief Complaint "Doing pretty well". Review of Systems Sleep Information Total Hours of Sleep: 6.5 Meal Information Percent Meal Consumed - Breakfast: 100 Percent Meal Consumed - Lunch: 75 Percent Meal Consumed - Dinner: 100 Subjective Subjective The patient was seen and assessed and interval progress reviewed in a multidisciplinary team meeting with the treatment team. For details, see the "Impression" section. Overall I spent a total of 31 minutes for this inpatient follow-up including review of chart records, direct evaluation of the patient [id number], counseling the patient, medication education with the patient, risk assessment, discussion during interdisciplinary treatment rounds, and documentation in the electronic health record. Physical Exam Psychiatric Orientation: alert, oriented to person, oriented to place, oriented to time and cooperative Apperance: appropriately dressed, appropriately groomed and appeared stated age Eye Contact: good eye contact Motor Behavior: no abnormal motor movements Speech: normal rate/rhythm/volume of speech Affect: + constricted affect Mood: + depressed mood and + anxious mood Thought Process: linear/logical thought process Thought Content: reality based without delusions Suicidal Thoughts: denies suicidal plan and denies suicidal intent; + reports suicidal thoughts Homicidal Thoughts: denies homicidal thoughts Hallucinations: no auditory hallucinations and no visual hallucinations Cognition: recent memory grossly intact, remote memory grossly intact, attention grossly intact and language grossly intact Estimated Intelligence: + above average estimated intelligence Insight: + fair insight Judgment: + fair judgement Vital Signs (Past 24 Hours) Last Vital Signs Temp 36.8 C 09/20/23 06:35 Pulse 105 H 09/20/23 06:35 Resp 16 09/20/23 06:35 BP 91/58 L 09/20/23 06:35 Pulse Ox 99 09/16/23 17:20 O2 Del Method Room Air 09/16/23 18:30 Results & Data ([facility]) Current Inpatient Medications Current Inpatient Medications: Current Inpatient Medications Acetaminophen (Acetaminophen 325 Mg Tab) 650 mg PO Q4H PRN PRN Reason: Headache or Minor Fever Stop: 10/16/23 19:03 Last Admin: 09/17/23 16:07 Dose: 650 mg Al Hydrox/Mg Hydrox/Simethicone (Aluminum/Magnesium Susp 30 Ml Udc) 30 ml PO Q4H PRN PRN Reason: GI Upset Stop: 10/16/23 19:03 Aripiprazole (Aripiprazole 5 Mg Tab) 7.5 mg PO QAM [facility] Stop: 10/19/23 08:59 Last Admin: 09/20/23 09:09 Dose: 7.5 mg Bismuth Subsalicylate (Bismuth Subsalicylate Liqd 236 Ml) 15 ml PO PRN PRN PRN Reason: Loose Stool Stop: 10/16/23 19:03 Fexofenadine HCl (Fexofenadine Hcl 180 Mg Tab) 180 mg PO QAM [facility] Stop: 10/17/23 08:59 Last Admin: 09/20/23 09:10 Dose: 180 mg Fluoxetine HCl (Fluoxetine Hcl 20 Mg Cap) 60 mg PO QAM [facility] Stop: 10/16/23 19:14 Last Admin: 09/20/23 09:10 Dose: 60 mg Folic Acid (Folic Acid 1 Mg Tab) 1 mg PO QAM [facility] Stop: 10/19/23 08:59 Last Admin: 09/20/23 09:10 Dose: 1 mg Hydroxyzine HCl (Hydroxyzine Hcl 25 Mg Tab) 50 mg PO HSZ PRN PRN Reason: Insomnia Stop: 10/16/23 19:03 Last Admin: 09/19/23 20:28 Dose: 50 mg Hydroxyzine HCl (Hydroxyzine Hcl 25 Mg Tab) 25 mg PO Q4H PRN PRN Reason: Anxiety Stop: 10/16/23 19:03 Loratadine (Loratadine 10 Mg Tab) 10 mg PO HS WIL Stop: 10/16/23 21:59 Last Admin: 09/19/23 20:28 Dose: 10 mg Magnesium Hydroxide (Magnesium Hydroxide Susp 30 Ml Udc) 30 ml PO DAILY PRN PRN Reason: Constipation Stop: 10/16/23 19:03 Shanell 24 Fe: Non- Formulary Patient's Own Med 1 each PO DAILY WIL Stop: 10/16/23 19:29 Last Admin: 09/20/23 09:10 Dose: 1 each Sodium Chloride (Sodium Chloride 0.65% Na Soln 45 Ml ([place])) 1 - 2 sprays NA PRN PRN PRN Reason: Nasal Dryness/Congestion Stop: 10/16/23 19:03 Mental Health & Subst Abuse Tx Psychiatrist Name of Psychiatrist: Kenya Pelaez Date Of Appointment With Psychiatric Provider: 10/07/2023 Time of Appointment with Psychiatrist: 12pm Psychiatric Appointment Comment: telehealth Therapist Name of Therapist: [facility] Therapist's Date of Therapist Appointment: 09/23/2023 Time of Therapist Appointment: please follow up with therapist directly Therapy Appointment Comment: [address], [address], [place], [place] [employer] Main Installer Helper Name of Water Main Installer Helper: CASTILLO Arboleda Phone Number for Water Main Installer Helper: [phone] Case Management Appointment Comment: Please follow-up as scheduled. Post Discharge Appointments Primary Care Physician Name Of Family Doctor/PCP: CASTILLO Ramos Time of Appointment with PCP: please follow up as needed Contact Information Discharge Discharge Address: [address] [place] [address]
[2023-09-20] MEDS: LORATADINE 10 MG TAB PO SCH (20:52)
[2023-09-20] MEDS: hydrOXYzine HCl 25 MG TAB PO PRN (21:07)
[2023-09-21 06:38] VITALS: TEMP 98.4
[2023-09-21] MEDS: FEXOFENADINE HCL 180 MG TAB PO SCH (09:18)
[2023-09-21] MEDS: ARIPiprazole 5 MG TAB PO SCH (09:18)
[2023-09-21] MEDS: FLUoxetine HCL 20 MG CAP PO SCH (09:19)
[2023-09-21] MEDS: HAILEY FE PO SCH (09:19)
[2023-09-21] MEDS: FOLIC ACID 1 MG TAB PO SCH (09:19)
[2023-09-21 10:41] VITALS: BP 107/72; PULSE 77
--- NOTE | 2023-09-21 17:55 | Discharge Summary ---
Date of Service September 21, 2023 History of Present Illness As part of a thorough review of the available medical records, I have read and confirmed the following note by the ED physician: "Patient is a 17-year-old female who presents to the ER for suicidal ideations with a plan to overdose. 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 She also got into a fight with her sister and was having trouble while babysitting. She has a history of depression and anxiety. She has been taking her medications but notes that Saturday night she was researching which meds to take to kill herself. She still has thoughts of wanting to kill her self and consequently notified [employer] head athletic trainer who confirms this at bedside. Patient denies all other complaints." the following notes by the ED psychiatric family caseworker: "Met with pt to complete mental health assessment. She self-harms by cutting, with the last time being approximately 2 weeks ago. Pt started cutting when she was 16 as a way of coping with her emotions. Pt has outpatient providers whom she meets with regularly. She gets her medications prescribed via telehealth from her provider back in [place]. She meets with Jayne Lopez at [facility] once a week for counseling. Pt reports past traumas of her father being alcoholic and describing multiple times how he would kill himself, having to drive her mother to the ER after she attempted to kill herself and the pt found her when she was 14 years old, and her mom having breast cancer and anorexia. She has not been eating or sleeping well and feels both are related to how she has been feeling with her mental health. She doesn't have the motivation to get up and make herself something to eat and she hasn't been feeling hungry. Pt report difficulty falling and staying asleep at night, then is overly tired during the day time. She describes her current academic standing as "on a slow decline". She has been missing some classes due to lacking the motivation to get up. 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 She also enjoys reading, crafts, and hanging out with friends. She does feel that she has been participating in th jenny activities less but does not feel she is isolating herself at this time. Pt denies any drug or alcohol use. Pt is willing to sign herself in for treatment." "Sanchez from [facility]'s Mental Health Case Management was present with pt in the ED from arrival. She has since left the ED and asked that we call her with updates when we get placement. Pt agreeable to staff contacting Sanchez ([phone]) and keeping her updated. Will have pt sign KATHRYN." "Met with pt with Dr. Caldera. Pt states that she was having thoughts to kill herself last night and had begun looking at her medications to see which ones would kill her. Pt states these thoughts come and go but recently have gotten worse. She states there were no events or triggers to increase these thoughts, but then goes on to list different things that happened over the break. Her dad spent some time in the hospital for stroke symptoms and the pt reports being the one to care for him as there is nobody else to do it. She also stated her cousin got diagnosed with Leukemia. She also got into a big fight with her sister. Pt has never attempted suicide in the past but has been inpatient once before in [place]. Pt states she did not stay for treatment at this facility as it felt was unsafe in relation to the staff to patient ratio. She stated the facility did not have space for her when she got there and that there were very minimal staff with a large number of patients. Pt denies HI/Hallucinations. She is prescribed Prozac and Abilify by a psychiatrist back home in [place]. Pt reports she is compliant with her medications. She is seeking inpatient treatment at this time. " and the following note by the psychiatric liaison nurse: "Patient presented to ED with SI, with plan to OD. She denies any past SA. She was inpatient in December at [facility] in [place]. She states it was not a good experience and signed herself out. She does have a history of SIB by cutting, last episode was 2 weeks ago. 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 She identifies her stressors as family, school, and pressures with fencing. She reports that she and her father are not close. Over break she and her sister got in a fight, and was with her father who was having health concerns. Her parents are states her mother is supportive however "overbearing." She states due to her current mental health state, her grades are declining. She does have outpatient providers, Jayne Lopez for therapy, next appointment 09/18/23 whom she sees weekly, Kenya Pelaez in [place] for psychiatry her Prozac was recently increased to 60mg. She denies any D&A use. Today she began to see Sanchez [facility] ([phone])." Review of the medical record reveals no previous or outside psychiatric records. Pt. carries diagnosis of Recurrent Major Depression and "cPTSD" has been raised as a possibility. Review of pertinent labs reveals they are noncontributory. A urine toxicology screen was negative for all tested substrates. BAL was <10 mg/dL. screen was negative. Pt presents as pleasant, cooperative, but somewhat detached. Describes a very challenging family with an alcoholic and intermittently violent father who has threatened suicide often and a mother who has attempted suicide multiple times including once when pt found her on the floor post-overdose. Despite categorizing her father as "a piece of shit", she recently spent long hours in the hospital with him "because nobody else would". Depression symptoms have worsened over the past several weeks with a specific stressor being an argument she had with a sister over Thanksgi. She has become somewhat preoccupied with ways she might kill herself and reading about this online. She elected to tell a head athletic trainer about this and came to the ED. Has been on fluoxetine for over a year and fairly recently started aripiprazole at 2 mg with more-recent increase to 4 mg. She attributes no side effect to either, but reports scant benefit either. Physical Exam Mental Examination Appearance: Well Groomed Eye Contact: Maintains Eye Contact Motor Behavior: Unremarkable Speech: Normal Mood: Calm Affect: Appropriate and Calm Thought Process: Intact Hallucinations: None Insight: Good Judgement: Good Psychiatric Orientation: alert, oriented to person, oriented to place, oriented to time and cooperative Apperance: appropriately dressed, appropriately groomed and appeared stated age Eye Contact: good eye contact Motor Behavior: no abnormal motor movements Speech: normal rate/rhythm/volume of speech Affect: + constricted affect Mood: + depressed mood and + anxious mood Thought Process: linear/logical thought process Thought Content: reality based without delusions Suicidal Thoughts: denies suicidal plan and denies suicidal intent; + reports suicidal thoughts Homicidal Thoughts: denies homicidal thoughts Hallucinations: no auditory hallucinations and no visual hallucinations Cognition: recent memory grossly intact, remote memory grossly intact, attention grossly intact and language grossly intact Estimated Intelligence: + above average estimated intelligence Insight: + fair insight Judgment: + fair judgement Vital Signs (Past 24 Hours) Last Vital Signs Temp 36.9 C 09/21/23 10:40 Pulse 77 09/21/23 10:40 Resp 16 09/21/23 10:40 BP 107/72 09/21/23 10:40 Pulse Ox 99 09/21/23 10:40 O2 Del Method Room Air 09/16/23 18:30 The admission physical examination has been reviewed and is considered adequate for purposes of the discharge Principal Diagnosis Major depressive disorder, recurrent, severe, without psychotic features. Psychiatric Data See daily stay summary. In short, safety was maintained and the patient was cooperative with care. Medication changes included standing dose fluoxetine 60 mg a day and titrated aripiprazole 7.5 mg daily. And they tolerated this well. A family session was held and safety plan was completed prior to discharge. Day of Discharge Assessment Today the patient voices readiness for discharge. They note improvement in mood and deny thoughts to harm self or others. Thoughts remain organized and they are improved from admission. There is no evidence of psychosis. They agree to take mediations as prescribed and keep follow-up appointments. They are stable for discharge to outpatient level of care. Transition of Care Transition Of Care Record: was reviewed with the patient Advance Directives Advance Directives Information Provided: Yes Advance Directives: No Mental Health Advance Directive: No Advance Directives on File: No Living Will: No Power of Newsroom Intern: No Advance Directives Reason:: Declines as Mental Health Visit. Suicide Risk Level Suicide Risk Level Comments: Ms. Schmitt is considered to be in long-term moderate risk for suicide, given her recurrent hospitalizations, and intermittent suicidal ideation with expressed plan. Irrigating this risk is the fact that the patient reports that she is not actually made a suicide attempt, and also reports that she does not believe that she has ever had actual suicidal intent. For example, during this hospitalization, the patient explained that although she had related to suicide plan to overdose on medications, and although she also noted that she had done some online research regarding how to do this, she further acknowledges that she actually would have known how to commit suicide by self poisoning without research, and notes that she did not engage in any acts of furtherance. Risk Factors Assessment Male: No : Yes Do You Have Access To A Gun?: No Health Problems: No Mental Health Diagnoses: Yes Substance Use Disorders: No Previous Attempt: No Family History of Suicide: No Previous Psychiatric Hospitalization: Yes Hopelessness: No Protective Factors Assessment : No Responsible for Young Children: No Employed: Yes (Full-time student at [employer].) Stable Relationships: Yes Supportive Family: No Good Rapport with Provider: Yes Antipsychotic Medications In this case, aripiprazole is used as an adjunct to fluoxetine in the treatment of recurrent major depressive disorder. Total Time Total Time Spent: Greater Than 30 Minutes Discharge Data Lab Results 09/16/23 09/16/23 09/16/23 09:26 10:03 11:15 WBC 6.69 RBC 4.29 Hgb 13.8 Hct 38.9 MCV 90.7 MCH 32.2 MCHC 35.5 RDW Std Deviation 38.5 RDW Coeff of Rachel 11.8 Plt Count 300 MPV 10.7 Immature Gran % (Auto) 0.4 Neut % (Auto) 53.9 Lymph % (Auto) 28.7 Glenn % (Auto) 9.0 Eos % (Auto) 7.0 Baso % (Auto) 1.0 Neut # (Auto) 3.60 Lymph # (Auto) 1.92 Glenn # (Auto) 0.60 H Eos # (Auto) 0.47 Baso # (Auto) 0.07 Immature Gran # (Auto) 0.03 ESR Sodium 139 Potassium 4.7 Chloride 107 Carbon Dioxide 27 Anion Gap 5 BUN 9 Creatinine 0.66 Est Cr Clr Drug Dosing 133.3 Est GFR ( Amer) 148.4 Est GFR (Non-Af Amer) 128.1 BUN/Creatinine Ratio 13.6 Glucose 89 Calcium 9.6 Total Bilirubin 0.7 AST 19 ALT 14 Alkaline Phosphatase 70 Total Protein 6.9 Albumin 4.1 Globulin 2.8 Albumin/Globulin Ratio 1.5 Vitamin B12 25-OH Vitamin D Total Folate TSH 1.987 Urine Color Yellow Urine Appearance Clear Urine pH 6.0 Ur Specific [place] 1.013 Urine Protein Negative Urine Glucose (UA) Negative Urine Ketones Negative Urine Blood Negative Urine Nitrite Negative Urine Bilirubin Negative Urine Urobilinogen Negative Ur Leukocyte Esterase Negative POC Ur Test Salicylates < 3.0 L Urine Opiates Screen Neg Ur Methadone, Qual Neg Acetaminophen < 3 L Urine Barbiturates Neg Ur Phencyclidine (PCP) Neg U Amphetamin/Meth Scrn Neg MDMA (Ecstasy) Screen Neg U Benzodiazepines Scrn Neg Ur Cocaine Metabolite Neg U Marijuana (THC) Screen Neg Ethyl Alcohol mg/dL < 10.0 SARS-CoV-2, RNA, NAAT NEGATIVE 09/16/23 09/17/23 17:44 12:00 WBC RBC Hgb Hct MCV MCH MCHC RDW Std Deviation RDW Coeff of Rachel Plt Count MPV Immature Gran % (Auto) Neut % (Auto) Lymph % (Auto) Glenn % (Auto) Eos % (Auto) Baso % (Auto) Neut # (Auto) Lymph # (Auto) Glenn # (Auto) Eos # (Auto) Baso # (Auto) Immature Gran # (Auto) ESR 6 Sodium Potassium Chloride Carbon Dioxide Anion Gap BUN Creatinine Est Cr Clr Drug Dosing Est GFR ( Amer) Est GFR (Non-Af Amer) BUN/Creatinine Ratio Glucose Calcium Total Bilirubin AST ALT Alkaline Phosphatase Total Protein Albumin Globulin Albumin/Globulin Ratio Vitamin B12 497 25-OH Vitamin D Total 44.3 Folate 11.55 TSH Urine Color Urine Appearance Urine pH Ur Specific [place] Urine Protein Urine Glucose (UA) Urine Ketones Urine Blood Urine Nitrite Urine Bilirubin Urine Urobilinogen Ur Leukocyte Esterase POC Ur Test NEG Salicylates Urine Opiates Screen Ur Methadone, Qual Acetaminophen Urine Barbiturates Ur Phencyclidine (PCP) U Amphetamin/Meth Scrn MDMA (Ecstasy) Screen U Benzodiazepines Scrn Ur Cocaine Metabolite U Marijuana (THC) Screen Ethyl Alcohol mg/dL SARS-CoV-2, RNA, NAAT Hospital Course (1) Major depressive disorder, recurrent, severe without psychotic features: Continue treatment for major depressive disorder on an outpatient basis. The full spectrum of psychiatric services are no longer medically necessary, the patient can be reasonably and safely treated on an outpatient basis. Plan 09/20/2023 * continue fluoxetine 60 mg - prior to admission medication * continue aripiprazole 7.5 mg - increased 09/18/2023, increased 09/17/2023 to 5 mg from prior to admission dose of 4 mg * continue folic acid 1 mg daily as augmentation strategy * anticipate discharge tomorrow 09/19/2023 * continue fluoxetine 60 mg, consider increase to 80 mg (most likely post- discharge) - prior to admission medication * continue aripiprazole 7.5 mg - increased 09/18/2023, increased 09/17/2023 to 5 mg from prior to admission dose of 4 mg * continue folic acid 1 mg daily as augmentation strategy 09/18/2023: * continue fluoxetine 60 mg, consider increase to 80 mg (most likely post- discharge) - prior to admission medication * increase aripiprazole to 7.5 mg - increased 09/17/2023 from prior to admission dose of 4 mg * add folic acid 1 mg daily as augmentation strategy 09/17/2023: The patient was admitted to the [facility] ([facility] mental health unit) on q15 minute checks (behavioral with suicide precautions) for safety.The patient will participate in group, recreational, and milieu therapies and will be offered additional individual and family sessions as clinically appropriate. * continue fluoxetine 60 mg, consider increase to 80 mg vs change to escitalopram * increase aripiprazole to 5 mg, anticipate likely further titration * In addition to the screening labs ordered in the ED, will order vitamin B12 level, folic acid level, 25-OH vitamin D level, ESR to rule out conditions more pertinent to psychiatric symptoms. Mental Health & Subst Abuse Tx Psychiatrist Name of Psychiatrist: Kenya Pelaez Date Of Appointment With Psychiatric Provider: 10/07/2023 Time of Appointment with Psychiatrist: 12pm Psychiatric Appointment Comment: telehealth Psychiatrist Release of Information: Obtained, Reviewed and Signed Therapist Name of Therapist: [facility]-Jayne Lopez Therapist's Date of Therapist Appointment: 09/23/2023 Time of Therapist Appointment: please follow up with therapist directly Therapy Appointment Comment: [address], [address], [place], [place] Voip Network Technician Name of Voip Network Technician: CASTILLO Arboleda Phone Number for Voip Network Technician: [phone] Case Management Appointment Comment: Please follow-up as scheduled. Voip Network Technician Release of Information: Obtained, Reviewed and Signed Post Discharge Appointments Primary Care Physician Name Of Family Doctor/PCP: CASTILLO Ramos Time of Appointment with PCP: please follow up as needed Primary Care Release of Information: Obtained, Reviewed and Signed Other #1: Name of Aftercare Appointment: [facility] Phone Number of Aftercare Appointment: [phone] Date of Aftercare Appointment: 09/23/23 Time of Aftercare Appointment: 10:00 AM Aftercare Appointment Comment: Link will be sent to your [facility] email. #2: Name of Aftercare Appointment: [facility] Phone Number of Aftercare Appointment: [address], [place] [address] Date of Aftercare Appointment: 09/24/23 Time of Aftercare Appointment: 9:30AM Aftercare Appointment Comment: [address] [place] [address] Release of Information Aftercare Appointment: Obtained, Reviewed and Signed Contact Information Discharge Discharge Address: [address] [place] [id number] Discharge Plan Discharge Items Patient Disposition: Home - Self-Care Reason For Visit: MENTAL HEALTH EVAL Discharge Diagnosis: Major depressive disorder, recurrent, severe, without psychotic features. Activity: Resume your previous activity Bathing: No limitations Sexual Activity: When tolerated Exercise/Sports: As tolerated Driving/Machine Use: No limitations Weightbearing: Full weightbearing Non-emergency contact: Primary Care Provider, Psychiatrist and Therapist Call non-emergency contact if: you have any medication questions and your sympto ms worsen Follow-up/Referrals: [facility] [Primary Care Provider] - Diet: Regular Addtl Attending Provider Instructions: Continue therapeutic alliance with your outpatient treatment providers. Also in your plan to apply for admission to the [facility] treatment [facility] in [place], [place]. Pending Studies at Discharge: No Stand-Alone Forms: My [facility] Medications and DC Order Prescriptions: New aripiprazole [Abilify] 5 mg Tablet 7.5 mg PO QAM Qty: 45 0RF Continued fluoxetine 60 mg tablet 60 mg PO DAILY Claritin 10 mg tablet 10 mg PO HS fexofenadine 180 mg tablet 180 mg PO DAILY Discontinued aripiprazole [Abilify] 2 mg tablet 4 mg PO DAILY Discharge Orders: Discharge Order (Routine); Ordered 09/21/23 Ordered By: Madhu Flynn Admission Data Admit Date/Time: 09/16/23 18:12 Attending Provider: Austyn Saenz Admit Provider: Austyn Saenz Primary Care Provider: [facility] Other Interventions: Discharge Summary Assessment (RN) Last Done: 09/21/23 10:40 PSY Interdisciplinary Discharge Planning Last Done: 09/21/23 11:28 C[place] [address] D/C day mgmt > 30 min Patient Type Established History Expanded Problem Focused Exam Expanded Problem Focused Medical Decision Making Moderate Complexity Diagnoses Major depressive disorder, recurrent, severe without psychotic features F33.2 Time Spent (min) 55
== END 2023-09-21 11:55 | disposition home or self-care (01) | DRG 885 ==
LOC: ED 08:33 → 3S 18:05